=== PATIENT | female | born 1990 | race Caucasian/White ===

== ENCOUNTER 2021-01-21 09:04 | Outpatient (CLI) | payer MEDICAID ==
[~2021-01-21] VITALS: Ht 172.7 cm; Wt 79.5 kg
[2021-01-21 09:29] VITALS: BP 114/59
[2021-01-21] MEDS ORDERED: PREN1TAB60 PO (10:53)
== END 2021-01-21 11:00 | disposition home or self-care (01) ==
LOC: LDOP 09:04
PROVIDERS: ATTEND Obstetrics & Gynecology
DX: O46.92 Antepartum hemorrhage, unspecified, second trimester (principal); Z3A.25 25 weeks gestation of pregnancy
CPT/HCPCS: 99211; G0463

== ENCOUNTER 2021-04-30 14:28 | Inpatient (IN) | payer MEDICAID ==
[~2021-04-30] VITALS: Ht 172.7 cm; Wt 95.9 kg
[~2021-04-30 14:28] MED LIST: PREN1TAB60 PO
[2021-04-30] MEDS ORDERED: NEWBORN KIT ONE (22:50)
[2021-04-30] MEDS ORDERED: MISOPROSTOL 200 MCG TABLET ONE (22:51)
[2021-04-30] MEDS ORDERED: LIDOCAINE 1%, 20ML ONE (22:51)
[2021-04-30] MEDS ORDERED: OXYTOCIN 30U/ 0.9% NaCL 500ML 500 ML ONE (22:51)
[2021-04-30] MEDS ORDERED: LACTATED RINGERS 1,000 ML IV SCH (23:00)
[2021-04-30] MEDS ORDERED: PLEASE ENTER HEIGHT AND WEIGHT MC SCH ×2 (23:00→23:30)
[2021-04-30] MEDS ORDERED: ONDANSETRON 2MG/ML, 2ML IVPush PRN (23:00)
[2021-04-30] MEDS ORDERED: FENTANYL PF 100 MCG/2ML IV PRN (23:00)
[2021-04-30] MEDS ORDERED: TERBUTALINE 1 MG/ML, 1ML SQ PRN (23:00)
[2021-04-30] MEDS ORDERED: TERBUTALINE 1 MG/ML, 1ML IVPush PRN (23:00)
[2021-04-30] MEDS ORDERED: OXYTOCIN 30U/ 0.9% NaCL 500ML 500 ML IV ONE (23:00)
[2021-04-30] MEDS ORDERED: FENTANYL PF 100 MCG/2ML IVPush PRN (23:00)
[2021-04-30] MEDS ORDERED: D5%-LACTATED RINGERS 1,000 ML IV SCH (23:00)
[2021-04-30] MEDS ORDERED: CALCIUM CARBONATE 500 MG TAB.CHEW PO PRN (23:00)
[2021-04-30] MEDS ORDERED: MISOPROSTOL 25 MCG TABLET ONE (23:21)
[2021-04-30 23:24] LABS: BASOPHILS % (AUTO) 1 % (0-1); EOSINOPHILS % (AUTO) 2 % (1-7); LYMPHOCYTES % (AUTO) 21 % (22-44); MEAN CORPUSCULAR HEMOGLOBIN 30.4 pg (27.0-34.8); MEAN CORPUSCULAR HGB CONC 34.4 g/dL (32.4-35.8); MEAN PLATELET VOLUME 8.3 fL (7.4-10.4); MONOCYTES % (AUTO) 9 % (2-9); NEUTROPHILS % (AUTO) 67 % (42-75); PLATELET COUNT 311 x10^3/uL (130-400); RED BLOOD COUNT 3.82 x10^6/uL (3.82-5.3); RED CELL DISTRIBUTION WIDTH 13.4 % (9.6-15.2)
[2021-04-30] MEDS ORDERED: MISOPROSTOL 25 MCG TABLET VG PRN (23:30)
[2021-05-01 00:30] VITALS: BP 120/60
[2021-05-01] MEDS ORDERED: DIPHENHYDRAMINE 50 MG/ML, 1ML ONE (02:18)
[2021-05-01] MEDS ORDERED: DIPHENHYDRAMINE 50 MG/ML, 1ML IVPush ONE (02:30)
[2021-05-01] MEDS: LACTATED RINGERS 1,000 ML IVBOLUS PRN ×2 (06:50→07:38)
[2021-05-01] MEDS ORDERED: LACTATED RINGERS 1,000 ML IV SCH (08:30)
[2021-05-01] MEDS ORDERED: EPHEDRINE 50 MG/ML, 1ML IVPush PRN (08:30)
[2021-05-01] MEDS ORDERED: NALOXONE 0.4 MG/ML, 1ML IVPush PRN (08:30)
[2021-05-01] MEDS ORDERED: FENTANYL/BUPIV./NS/PF 250 ML EPIDCONT SCH (08:30)
[2021-05-01 08:58] VITALS: BP 130/74
[2021-05-01] MEDS ORDERED: CARBOPROST TROMETHAMINE 250 MCG/ML, 1ML IM PRN (14:30)
[2021-05-01] MEDS ORDERED: ONDANSETRON 2MG/ML, 2ML IV PRN (14:30)
[2021-05-01] MEDS ORDERED: TRANEXAMIC ACID 100 MG/ML, 10ML IV ONE (14:30)
[2021-05-01] MEDS ORDERED: OXYcodone/APAP 5/325MG TABLET PO PRN (14:30)
[2021-05-01] MEDS ORDERED: SIMETHICONE 80 MG CHEW TAB PO PRN (14:30)
[2021-05-01] MEDS ORDERED: MISOPROSTOL 200 MCG TABLET PR PRN (14:30)
[2021-05-01] MEDS ORDERED: METHYLERGONOVINE 0.2 MG/ML IM PRN (14:30)
[2021-05-01] MEDS: OXYTOCIN 30U/ 0.9% NaCL 500ML 500 ML IV SCH (14:46)
[2021-05-01 16:30] VITALS: BP 122/79
[2021-05-01] MEDS: IBUPROFEN 800 MG TABLET PO PRN (16:56)
[2021-05-01 19:15] VITALS: BP 120/74
[2021-05-01 22:03] LABS: BASOPHILS % (AUTO) 1 % (0-1); EOSINOPHILS % (AUTO) 1 % (1-7); LYMPHOCYTES % (AUTO) 10 % (22-44); MEAN CORPUSCULAR HEMOGLOBIN 30.3 pg (27.0-34.8); MEAN CORPUSCULAR HGB CONC 34.1 g/dL (32.4-35.8); MEAN PLATELET VOLUME 8.4 fL (7.4-10.4); MONOCYTES % (AUTO) 8 % (2-9); NEUTROPHILS % (AUTO) 81 % (42-75); PLATELET COUNT 255 x10^3/uL (130-400); RED BLOOD COUNT 3.92 x10^6/uL (3.82-5.3); RED CELL DISTRIBUTION WIDTH 13.4 % (9.6-15.2)
[2021-05-01] MEDS: DOCUSATE 100 MG CAPSULE PO PRN (23:16)
[2021-05-01] MEDS: OXYcodone/APAP 5/325MG TABLET PO PRN (23:17)
[2021-05-02] MEDS: OXYTOCIN 30U/ 0.9% NaCL 500ML 500 ML IV SCH ×2 (00:30→10:30)
[2021-05-02 00:32] VITALS: BP 121/73
[2021-05-02] MEDS: IBUPROFEN 800 MG TABLET PO PRN ×2 (01:01→08:10)
[2021-05-02 04:15] VITALS: BP 115/71
[2021-05-02] MEDS: OXYcodone/APAP 5/325MG TABLET PO PRN ×2 (06:03→11:04)
[2021-05-02] MEDS: DOCUSATE 100 MG CAPSULE PO PRN (08:10)
[2021-05-02 08:45] VITALS: BP 120/79
[2021-05-02] MEDS ORDERED: PRENATAL VIT/IRON/FA 1 EACH TABLET PO SCH (09:00)
== END 2021-05-02 15:00 | disposition home or self-care (01) | DRG 807 ==
LOC: LDIP 22:09 → 2NW 05-01 16:25
PROVIDERS: ADMIT Obstetrics & Gynecology; ATTEND Obstetrics & Gynecology
PROC: 0KQM0ZZ Repair Perineum Muscle, Open Approach (ICD-10-PCS; principal; 2021-05-01)
PROC: 10E0XZZ Delivery of Products of Conception, External Approach (ICD-10-PCS; 2021-05-01)
PROC: 3E033VJ Introduction of Other Hormone into Peripheral Vein, Percutaneous Approach (ICD-10-PCS; 2021-05-01)
PROC: 10907ZC Drainage of Amniotic Fluid, Therapeutic from Products of Conception, Via Natural or Artificial Opening (ICD-10-PCS; 2021-05-01)
DX: O69.81X0 Labor and delivery complicated by cord around neck, without compression, not applicable or unspecified (principal); Z37.0 Single live birth; O70.1 Second degree perineal laceration during delivery; Z3A.39 39 weeks gestation of pregnancy; O71.89 Other specified obstetric trauma
CPT/HCPCS: 36415; 85025; 86592; 86850; 86900; 87635; G0378; J1200; J2590; J7120